=== PATIENT | male | born 1955 | race Caucasian/White ===

== ENCOUNTER 2023-06-28 12:55 | Outpatient (CLI) | payer MEDICARE, SELFPAY ==
--- NOTE | ~2023-06-28 | US_ITS ---
EXAMINATION: US art doppler w press LE BI DATE: 06/28/2023 13:44 INDICATION: Peripheral vascular disease with claudication, left greater than right TECHNIQUE: Segmental pressures and plethysmographic and Doppler waveforms of the brachial and lower e xtremity arteries were obtained. COMPARISON: None. FINDINGS: Right and left brachial artery pressures of 151 mm Hg and 150 mm Hg, respectively, are concordant (no rmal difference <= 30 mmHg). The right ankle-brachial index (SARAH) is 0.42 (normal >= 0.9-1). The right great toe-brachial index (T BI) is unable to be assessed with no discernible pulse at the great toe (normal >= 0.6-0.8). Arterial waveforms are biphasic with brisk systolic upstrokes at the right common femoral artery. Monophasic waveforms with brisk systolic upstrokes at the right popliteal and posterior tibial arteries. In dale tion to at the right great toe there is no discernible pulse at the right dorsalis pedis artery. The left SARAH is 0.30. The left TBI is unable to be assessed due to no discernible pulse at the left g reat toe. Arterial waveforms are monophasic with borderline delayed upstrokes at the left common fem oral artery. There are parvus tardus waveforms with dampened and broadened systolic peaks at the left popliteal, posterior tibial and dorsalis pedis arteries. IMPRESSION: 1. Arterial occlusive disease to the bilateral lower limbs with severely decreased bilateral ABIs. Reviewed, dictated and finalized at location A. [employer] IMPRESSION: 1. Arterial occlusive disease to the bilateral lower limbs with severely decrea sed bilateral ABIs.
== END 2023-06-28 12:56 | disposition home or self-care (01) ==
LOC: CHSIMG 12:59
PROVIDERS: PCP Physician Assistant; Visit Provider Physician Assistant
DX: I73.9 Peripheral vascular disease, unspecified (principal)
CPT/HCPCS: 93923

== ENCOUNTER 2023-07-04 15:37 | Emergency (ER) | payer MEDICARE, SELFPAY ==
[2023-07-04 15:37] VITALS: RESP 16
[2023-07-04 15:42] VITALS: BP 134/74; PULSE 93; TEMP 37.1; O2SAT 97
--- NOTE | 2023-07-04 16:01 | ED.GENADULT ---
HPI - General Adult General Chief complaint: Wound/Laceration Stated complaint: foot pain Time Seen by Provider: 07/04/23 15:44 History of Present Illness HPI narrative: 68yo man with known peripheral arterial disease, everyday smoker for a long time, presents with worsening nagging severe pain in his left heel that is sharp and worse when elevating the foods. Lowering the foot and rubbing it helps a great deal. No coldness, no pain in the ankle or foot. Is scheduled to see a vascular surgeon to discuss options to improve circulation. He also gets a deep aching and numbness in the left calf when he is up and walking about and this has been present for several months. Related Data Home Medications Medication Instructions Recorded Confirmed lisinopril 20 mg tablet 20 mg PO DAILY 07/04/23 07/04/23 Allergies Allergy/AdvReac Type Severity Reaction Status Date / Time codeine Allergy Itching Verified 07/04/23 15:53 iohexol Allergy Hives Verified 07/04/23 15:53 [From contrast - CT, X-RAY] Review of Systems Review of Systems: All systems reviewed & are unremarkable except as noted in HPI and below Constitutional: Constitutional: Denies chills and Denies fever(s) Eyes: Eyes: Denies change in vision ENT: Denies dysphagia Cardiovascular: Cardiovascular: Denies chest pain Respiratory: Respiratory: Denies dyspnea Gastrointestinal: Gastrointestinal: Denies abdominal pain Exam Const: General: no acute distress and alert Nutritional Appearance: well nourished HENMT: Head: normal to inspection Eyes: Conjunctivae: conjunctivae normal Resp: Effort & Inspection: normal respiratory effort and not labored Cardio: Rate: regular rate Other: feet warm, no heat or rubor, only tender to the left lateral heel, no other tenderness in the lower extremities; no palpable DP or PT pulses, but present on doppler GI: Inspection: non-distended Skin: General skin exam: normal color, no jaundice and no pallor Other: desquamation of both legs, no ulceration, no heat or rubor. Slight symmetric edema to both feet, none in the legs Neuro: General: patient oriented x3 and moves all extremities Gait exam (Neuro): Normal gait present Extrem: Other: see skin exam, no cyanosis, necrosis, or ulceration Course Vital Signs Vital signs: Vital Signs Temperature 37.1 C 07/04/23 15:42 Pulse Rate 93 07/04/23 15:42 Blood Pressure 134/74 07/04/23 15:42 Pulse Oximetry 97 07/04/23 15:42 Oxygen Delivery Room Air 07/04/23 15:42 Temperature 37.1 C 07/04/23 15:42 Pulse Rate 93 07/04/23 15:42 Blood Pressure 134/74 07/04/23 15:42 Pulse Oximetry 97 07/04/23 15:42 Oxygen Delivery Room Air 07/04/23 15:42 Medical Decision Making MDM Narrative Medical decision making narrative: calf pain with ambulation, left heel focal pain DDx likely chronic limb ischemia, intermittent claudication, possible developing arterial ulcer at the heel, distal pulses intact, no signs of critical limb ischemia. Continue vascular surgery followup. Start cilostazol and aspirin. Vital Signs Vital Signs: Vital Signs Temperature 37.1 C 07/04/23 15:42 Pulse Rate 93 07/04/23 15:42 Blood Pressure 134/74 07/04/23 15:42 Pulse Oximetry 97 07/04/23 15:42 Oxygen Delivery Room Air 07/04/23 15:42 Temperature 37.1 C 07/04/23 15:42 Pulse Rate 93 07/04/23 15:42 Blood Pressure 134/74 07/04/23 15:42 Pulse Oximetry 97 07/04/23 15:42 Oxygen Delivery Room Air 07/04/23 15:42 Discharge Plan Discharge Clinical Impression: Claudication of left lower extremity Patient Disposition: Home, Self-Care Condition: Stable Instructions: Antibiotic Form Additional Instructions: Start taking the prescribed medications Aspirin and Cilostazol as scheduled to help thin the blood and reduce your pain with walking. To help to take the edge off of your pain, y
[2023-07-04] MEDS: ASPIRIN 325 MG ENTERIC TABLET 650 MG PO (16:22)
[2023-07-04] MEDS: HYDROcodone/acetaminophen (*CRX) 5-325 MG TABLET 2 TAB PO (16:23)
[2023-07-04] MEDS: KETOROLAC 30 MG/ML VIAL (*BKC) IM (16:24)
[2023-07-04] MEDS: cilostazoL 100 MG TABLET PO (16:41)
--- NOTE | 2023-07-04 16:42 | PC.NURSE ---
RN able to doppler pedal pulse on left foot.
[2023-07-04 16:50] VITALS: BP 143/83; PULSE 87; RESP 17; TEMP 37.1; O2SAT 97
== END 2023-07-04 16:50 | disposition home or self-care (01) ==
PROVIDERS: Emergency Provider Emergency Medicine; PCP Physician Assistant
DX: I73.9 Peripheral vascular disease, unspecified (principal)
CPT/HCPCS: 96372; 99283; A9270; J1885

== ENCOUNTER 2024-01-15 03:41 | Emergency (ER) | payer MEDICARE, SELFPAY ==
[2024-01-15 03:50] VITALS: BP 153/88; PULSE 88; RESP 20; TEMP 36.6; O2SAT 96
--- NOTE | 2024-01-15 04:01 | ED.MALEGU ---
HPI - Male Genitourinary General Chief complaint: Urogenital-Male Stated complaint: Unable to void Time Seen by Provider: 01/15/24 04:00 Source: patient and family Mode of arrival: ambulatory Limitations: no limitations History of Present Illness HPI Narrative: Is a 68-year-old male presents with difficulty passing urine recently had a fem-pop surgery and was discharged from the hospital a few days ago is currently on blood thinners and since 11 this evening has had difficulty passing urine there is some urine that is past and does have a few blood clots. The patient refuses Mclaughlin catheter and decided to go home and continue to try to urinate. There is no fever chills no chest pain no shortness of breath wound was examined on the left upper extremity and will repeat bandage. Onset (ago): hour(s) Duration: intermittent Related Data Home Medications Medication Instructions Recorded Confirmed atorvastatin 40 mg tablet 40 mg PO QHS 11/02/23 11/02/23 metoprolol succinate 25 mg 12.5 mg PO DAILY 11/02/23 11/02/23 tablet,extended release 24 hr ticagrelor 90 mg tablet 90 mg PO Q12H 11/02/23 11/02/23 Allergies Allergy/AdvReac Type Severity Reaction Status Date / Time codeine Allergy Itching Verified 01/04/24 16:27 iohexol Allergy Hives Verified 01/04/24 16:27 [From contrast - CT, X-RAY] Review of Systems Review of Systems: All systems reviewed & are unremarkable except as noted in HPI and below PMFSH Past Medical History Medical History CAD (coronary artery disease) PAD (peripheral artery disease) Social History Social History Smoking status: Current every day smoker Alcohol intake: never Substance use: never Exam Const: General: healthy appearing, no acute distress and alert Nutritional Appearance: well nourished Limitations: no limitations Resp: Effort & Inspection: normal respiratory effort Auscultation: clear to auscultation bilaterally Cardio: Rate: regular rate Rhythm: regular rhythm : General: Yes Bladder palpation abnormal and Yes no CVA tenderness Back/Spine/Pelvis: Back: no CVA tenderness Skin: Wounds: wounds noted Neuro: General: patient oriented x3 Course Course Emergency Course: Patient refusing a Mclaughlin catheter, advised to follow with his vascular surgeon and primary surgeon for further evaluation. Bandage was replaced on his left upper extremity. Critical Care Time Critical Care Time Critical Care Time: No Discharge Plan Discharge Clinical Impression: Acute urinary retention Condition: Stable Instructions: Antibiotic Form, Urinary Retention in Men (ED) Additional Instructions: patient declined having a Mclaughlin catheter placed, advised patient to follow with his primary if symptoms persist or worsen. Prescriptions: No Action atorvastatin 40 mg tablet 40 mg PO QHS metoprolol succinate 25 mg tablet extended release 24 hr 12.5 mg PO DAILY ticagrelor 90 mg tablet 90 mg PO Q12H doxepin 75 mg capsule 75 mg PO QHS Qty: 90 3RF nicotine 21 mg/24 hr patch 24 hour 1 patch transdermal DAILY Qty: 28 0RF bupropion HCl 150 mg tablet sustained-release 12 hr 150 mg PO BID Qty: 180 0RF cilostazol 100 mg tablet 100 mg PO BID Qty: 120 3RF lisinopril 40 mg tablet 40 mg PO DAILY Qty: 90 3RF Follow-up/Referrals: Sanchez Chapin DO [Primary Care Provider] - Time of Disposition: 04:06
--- NOTE | 2024-01-15 04:15 | PC.NURSE ---
Pts post surgical Lt leg wound unwrapped of bloody dressings and joo area cleaned of dried blood. New dressings that pts. brought with them reapplied and bandages rewrapped.
[2024-01-15 04:25] VITALS: BP 140/84; PULSE 98; RESP 18; TEMP 36.6; O2SAT 95
== END 2024-01-15 04:25 | disposition home or self-care (01) ==
PROVIDERS: Emergency Provider Emergency Medicine; PCP Family Medicine
DX: R33.9 Retention of urine, unspecified (principal); I25.10 Atherosclerotic heart disease of native coronary artery without angina pectoris; F17.200 Nicotine dependence, unspecified, uncomplicated
CPT/HCPCS: 99281

== ENCOUNTER 2024-01-17 10:47 | Outpatient (CLI) | payer MEDICARE, SELFPAY ==
--- NOTE | ~2024-01-17 | US_ITS ---
EXAMINATION: US venous doppler [facility] DATE: 01/17/2024 11:29 INDICATION: Left lower limb pain TECHNIQUE: Grayscale ultrasound images without and with compression and Doppler ultrasound images of the left lower extremity veins were obtained. COMPARISON: None. FINDINGS: The visualized portions of left common femoral vein, profunda (deep) femoral vein, femoral vein, popl iteal vein, peroneal veins, posterior tibial veins and gastrocnemius vein are patent. The left greate r saphenous vein is not imaged and has reportedly been harvested. IMPRESSION: 1. No deep venous thrombosis in the left lower limb. Reviewed, dictated and finalized at location A.
[2024-01-17 11:01] LABS: Basophils Absolute Auto 0.04 K/mm3 (0.00-0.10); Basophils Percent Auto 0.6 % (0.0-1.0); Eosinophils Absolute Auto 0.13 K/mm3 (0.02-0.50); Eosinophils Percent Auto 1.8 % (1.0-6.0); Hematocrit 24.4 % (37.0-46.0); Hemoglobin 8.2 g/dL (12.4-15.3); Immature Granulocyte Absolute 0.03 K/mm3 (0.00-0.00); Immature Granulocyte Percent A 0.4 % (0.0-0.0); Lymphocytes Absolute Auto 1.25 K/mm3 (1.10-4.50); Lymphocytes Percent Auto 17.2 % (18.0-42.0); Mean Corpuscular HGB Conc 33.6 g/dL (32-36); Mean Corpuscular Hemoglobin 30.7 pg (27.0-31.0); Mean Corpuscular Volume 91.4 fL (78.0-102.0); Mean Platelet Volume 8.1 fl (8.7-11.0); Monocytes Absolute Auto 0.58 K/mm3 (0.10-0.90); Neutrophils Absolute Auto 5.23 K/mm3 (1.70-7.20); Platelet Count Result 300 K/mm3 (150-420); Red Blood Count 2.67 M/mm3 (4.70-6.10); Red Cell Distribution Width 14.6 % (11.6-14.4); White Blood Count 7.3 K/mm3 (4.8-10.8)
[2024-01-17 12:48] LABS: Alanine Aminotransferase 24 U/L (16-63); Albumin Level 3.3 g/dL (3.4-5.0); Alkaline Phosphatase 66 U/L (46-116); Anion Gap 9 mmol/L (4-12); Aspartate Amino Transferase 22 U/L (15-37); Bilirubin,Total 0.5 mg/dL (0.00-1.00); Blood Urea Nitrogen 9 mg/dL (7-18); Calcium 8.9 mg/dL (8.5-10.1); Carbon Dioxide 27 mmol/L (21-32); Chloride 102 mmol/L (98-108); Estimated Glomerular Filt Rate > 60; Glucose 114 mg/dL (70-99); NT Pro B Type Natriuretic Pept 292 pg/mL (0-125); Osmolality Calculated 285 mOsm/kg (285-295); Potassium 4.1 mmol/L (3.5-5.1); Sodium 138 mmol/L (136-145); Total Protein 6.1 g/dL (6.4-8.2)
== END 2024-01-17 10:48 | disposition home or self-care (01) ==
LOC: CHSLAB 10:49
PROVIDERS: PCP Family Medicine; Visit Provider Family Medicine
DX: I73.9 Peripheral vascular disease, unspecified (principal); M79.672 Pain in left foot; I50.31 Acute diastolic (congestive) heart failure
CPT/HCPCS: 36415; 80053; 83880; 85025; 93971

== ENCOUNTER 2024-04-06 11:00 | Outpatient (RCR) | payer MEDICARE, SELFPAY ==
--- NOTE | 2023-12-16 11:40 | PCCPR ---
Financial assistance application reviewed and given to patient today as he will have co-insurance responsibility for each session.
--- NOTE | 2024-02-16 09:02 | PCCPR ---
Followed up with Dr. Chapin's medical billing assistant (Adelia) regarding patient return to cardiac rehab after medical procedure (fem/pop bypass), need for further extension, or need for discharge. Last recorded session was 01/06/24. States she will follow up with Dr. Chapin and get back to me.
== END 2024-04-06 23:59 | disposition home or self-care (01) ==
PROVIDERS: PCP Family Medicine; Visit Provider Family Medicine
DX: Z98.61 Coronary angioplasty status (principal)
CPT/HCPCS: 93798

== ENCOUNTER 2024-04-18 11:00 | Outpatient (RCR) | payer MEDICARE, SELFPAY | END 2024-04-25 12:00 | disposition home or self-care (01) | PROVIDERS: PCP Family Medicine; Visit Provider Family Medicine | DX: Z95.5 Presence of coronary angioplasty implant and graft (principal) | CPT/HCPCS: 93798 ==

== ENCOUNTER 2024-07-24 11:32 | Outpatient (CLI) | payer MEDICARE, SELFPAY ==
[2024-07-24 11:51] LABS: Basophils Absolute Auto 0.05 K/mm3 (0.00-0.10); Basophils Percent Auto 0.5 % (0.0-1.0); Eosinophils Absolute Auto 0.14 K/mm3 (0.02-0.50); Eosinophils Percent Auto 1.4 % (1.0-6.0); Hematocrit 29.6 % (37.0-46.0); Immature Granulocyte Absolute 0.05 K/mm3 (0.00-0.00); Immature Granulocyte Percent A 0.5 % (0.0-0.0); Lymphocytes Absolute Auto 1.26 K/mm3 (1.10-4.50); Mean Corpuscular HGB Conc 30.4 g/dL (32-36); Mean Corpuscular Hemoglobin 24.2 pg (27.0-31.0); Mean Corpuscular Volume 79.6 fL (78.0-102.0); Mean Platelet Volume 8.4 fl (8.7-11.0); Monocytes Absolute Auto 0.76 K/mm3 (0.10-0.90); Monocytes Percent Auto 7.8 % (2.0-11.0); Neutrophils Absolute Auto 7.46 K/mm3 (1.70-7.20); Neutrophils Percent Auto 76.8 % (50.0-70.0); Platelet Count Result 295 K/mm3 (150-420); Red Blood Count 3.72 M/mm3 (4.70-6.10); Red Cell Distribution Width 18.1 % (11.6-14.4); White Blood Count 9.7 K/mm3 (4.8-10.8)
[2024-07-24 12:44] LABS: Alanine Aminotransferase 14 U/L (16-63); Albumin Level 3.9 g/dL (3.4-5.0); Alkaline Phosphatase 115 U/L (46-116); Aspartate Amino Transferase < 10 U/L (15-37); Bilirubin,Total 0.6 mg/dL (0.00-1.00); Blood Urea Nitrogen 5 mg/dL (7-18); Calcium 8.7 mg/dL (8.5-10.1); Carbon Dioxide 27 mmol/L (21-32); Cholesterol 97 mg/dL (0-200); Creatine Kinase 80 U/L (39-308); Estimated Glomerular Filt Rate > 60; Glucose 96 mg/dL (70-99); HDL Direct 61 mg/dL (40-60); LDL Cholesterol Calculated 30 mg/dL (<130); Triglycerides 32 mg/dL (0-150)
[2024-07-24 12:50] LABS: Anion Gap 9 mmol/L (4-12); Chloride 101 mmol/L (98-108); Osmolality Calculated 281 mOsm/kg (285-295); Sodium 137 mmol/L (136-145)
== END 2024-07-24 11:33 | disposition home or self-care (01) ==
LOC: CHSLAB 11:32
PROVIDERS: PCP Family Medicine; Visit Provider Family Medicine
DX: I25.10 Atherosclerotic heart disease of native coronary artery without angina pectoris (principal)
CPT/HCPCS: 36415; 80053; 80061; 82550; 85025